=== PATIENT | female | born 1995 | race African-American/Black ===

== ENCOUNTER 2019-06-22 08:57 | Inpatient (IN) | payer OTHER ==
[2019-06-22] MEDS ORDERED: Misoprostol 200 MCG TAB PR PRN (09:20)
[2019-06-22] MEDS ORDERED: Lidocaine 1% (PF) 30 ML VIAL SC PRN (09:20)
[2019-06-22] MEDS ORDERED: hydrALAZINE 20 MG/ML VIAL SLOW IVP PRN ×2 (09:20→11:01)
[2019-06-22] MEDS ORDERED: Ondansetron PF 4 MG/2 ML Vial IVP PRN ×2 (09:20→11:01)
[2019-06-22] MEDS ORDERED: Carboprost 250 MCG/ML AMP IM PRN (09:20)
[2019-06-22] MEDS ORDERED: NS / Oxytocin 40 units/1000ml 1,000 ML IV PRN (09:20)
[2019-06-22] MEDS ORDERED: Diphenoxylate HCl/Atropine Tablet PO PRN (09:20)
[2019-06-22] MEDS ORDERED: HYDROcodone/Acetaminophen 5/325 mg Tablet PO PRN ×3 (09:20→11:01)
[2019-06-22] MEDS ORDERED: Methylergonovine 0.2 MG/ML VIAL IM PRN (09:20)
[2019-06-22] MEDS ORDERED: Promethazine HCl 25 MG/ML VIAL IM PRN (09:20)
[2019-06-22] MEDS ORDERED: Butorphanol Tartrate 1 MG/ML VIAL SLOW IVP PRN (09:20)
[2019-06-22] MEDS ORDERED: Ibuprofen 800 MG TAB PO PRN (09:20)
[2019-06-22] MEDS ORDERED: NS w/ Oxytocin 10 units 500 ML IV SCH ×2 (09:30)
[2019-06-22] MEDS ORDERED: Lactated Ringer's 1,000 ML IV SCH (09:30)
[2019-06-22] MEDS ORDERED: NS / Oxytocin 40 units/1000ml 1,000 ML ONE (09:37)
[2019-06-22 09:42] LABS: Hemoglobin 9.6 g/dL (12.0-16.0); Mean Corpuscular HGB CONC 34.6 g/dL (32.0-36.0); Mean Corpuscular Hemoglobin 28.5 pg (27.0-31.0); Mean Corpuscular Volume 82.3 fL (78.0-98.0); Mean Platelet Volume 10.2 fL (7.4-10.4); Platelet Count 182 thou/uL (130-400); RBC Distribution Width 14.5 % (11.5-14.5); Red Blood Cell (RBC) Count 3.38 mill/uL (4.20-5.40); White Blood Cell (WBC) Count 12.5 thou/uL (4.8-10.8)
[2019-06-22 10:18] VITALS: BMI 28.1
[2019-06-22 10:19] LABS: Syphilis Antibody Nonreactive (Nonreactive); Syphilis Antibody Index 0.05 S/CO (<1.00 Non-Reactive)
[2019-06-22 10:20] LABS: HBSAg Index 0.13 S/CO (0-0.99); Hep B Surf Ag Non-Reactive S/CO (NonReactive)
[2019-06-22] MEDS ORDERED: diphenhydrAMINE 25 MG CAP PO PRN (11:01)
[2019-06-22] MEDS ORDERED: Benzocaine-Menthol 82.5 ML CAN TOP PRN (11:01)
[2019-06-22] MEDS ORDERED: NS / Oxytocin 40 units/1000ml 1,000 ML IV SCH (11:01)
[2019-06-22] MEDS ORDERED: Milk Of Magnesia 30 ML UDCUP PO PRN (11:01)
[2019-06-22] MEDS ORDERED: Adacel (T-DAP) 0.5 ML SYRINGE IM ONE (11:01)
[2019-06-22] MEDS ORDERED: Lanolin Ointment 7 GM TUBE TOP PRN (11:01)
[2019-06-22] MEDS ORDERED: Bisacodyl 10 MG SUPP PR PRN (11:01)
[2019-06-22] MEDS: Ibuprofen 800 MG TAB PO SCH ×2 (16:14→22:02)
[2019-06-22] MEDS: Ferrous Sulfate 325 MG TAB PO SCH (16:57)
[2019-06-22] MEDS: Docusate Calcium (SURFAK) 240 MG CAP PO SCH (22:03)
[2019-06-23 05:34] LABS: Hemoglobin 8.4 g/dL (12.0-16.0); Mean Corpuscular HGB CONC 33.2 g/dL (32.0-36.0); Mean Corpuscular Hemoglobin 27.9 pg (27.0-31.0); Mean Corpuscular Volume 84.1 fL (78.0-98.0); Mean Platelet Volume 9.9 fL (7.4-10.4); Platelet Count 156 thou/uL (130-400); RBC Distribution Width 14.4 % (11.5-14.5); White Blood Cell (WBC) Count 11.4 thou/uL (4.8-10.8)
[2019-06-23] MEDS: Ibuprofen 800 MG TAB PO SCH ×2 (05:41→13:49)
[2019-06-23 08:10] VITALS: BP 128/60; TEMP 98.5
[2019-06-23] MEDS ORDERED: Prenatal Vitamin 1 TAB PO SCH (09:00)
[2019-06-23] MEDS: Docusate Calcium (SURFAK) 240 MG CAP PO SCH (09:21)
[2019-06-23] MEDS: Ferrous Sulfate 325 MG TAB PO SCH ×2 (09:21→18:15)
== END 2019-06-23 18:28 | disposition home or self-care (01) | DRG 807 ==
LOC: L&D/OP 08:57 → L&D 09:56 → 3SE 13:38
PROVIDERS: ADMIT Family Medicine; ATTEND Family Medicine
PROC: 10E0XZZ Delivery of Products of Conception, External Approach (ICD-10-PCS; principal; 2019-06-22)
DX: O62.3 Precipitate labor (principal); Z37.0 Single live birth; Z3A.40 40 weeks gestation of pregnancy; O76 Abnormality in fetal heart rate and rhythm complicating labor and delivery
CPT/HCPCS: 36415; 85027; 86780; 86850; 86900; 86901; 87340

== ENCOUNTER 2021-02-06 08:09 | Outpatient (CLI) | payer OTHER | END 2021-02-06 08:10 | disposition home or self-care (01) | LOC: BICULT 08:09 | PROVIDERS: ATTEND Family Medicine | DX: Z34.83 Encounter for supervision of other normal pregnancy, third trimester (principal); Z3A.30 30 weeks gestation of pregnancy | CPT/HCPCS: 76805 ==